=== PATIENT | female | born 1970 | race Caucasian/White ===

== ENCOUNTER 2020-10-29 13:09 | Emergency (ER) | payer BC ==
[~2020-10-29 13:09] MED LIST: FLOMAX0.4 MG PO; MACROBID 100 M100 MG PO; PERCOCET 5-3251 EACH PO; TORADOL 10 MG T10 MG PO
[2020-10-29 13:46] LABS: HEMOGLOBIN 13.2 gm/dl (12.3-15.3); RED BLOOD COUNT 4.46 M/UL (4.00-5.10); WHITE BLOOD COUNT 7.9 K/UL (4.5-11.0)
[2020-10-29 14:05] LABS: BUN/CREATININE RATIO 15 (0-10)
[2020-10-29] MEDS ORDERED: HYDROCODON-ACE1 EAC4 PO (17:12)
== END 2020-10-29 17:32 | disposition home or self-care (01) ==
LOC: ER1 13:09
PROVIDERS: Emergency Medicine
DX: N13.2 Hydronephrosis with renal and ureteral calculous obstruction (principal)
CPT/HCPCS: 80053; 81001; 85025; 96374; 96375; 99284; J1885; J2270; J2405